=== PATIENT | female | born 1940 | race Two or more races ===

== ENCOUNTER 2025-03-22 11:20 | Emergency (ER) | payer OTHER ==
[~2025-03-22] VITALS: Ht 160 cm; Wt 80.0 kg
[2025-03-22 11:30] VITALS: O2SAT 98
[2025-03-22] MEDS: ACETAMINOPHEN 500MG TABLET PO ONE (13:29)
[2025-03-22] MEDS: LIDOCAINE HCL/PF 1% 10 MG/ML 5ML VIAL INFIL ONE (13:40)
[2025-03-22] MEDS: BACITRACIN ZINC OINT UDPKT TOP ONE (13:40)
[2025-03-22] MEDS: AMOXICILLIN/POTASSIUM CLAVULANATE 875/125MG TAB PO ONE (13:58)
[2025-03-22] MEDS: TETANUS, DIPHTHERIA, PERTUSSIS VAC/PF 0.5ML (>10YR OLD) IM ONE (14:03)
[2025-03-22] MEDS ORDERED: AMOX1TAB16 MT (16:07)
[2025-03-22] MEDS ORDERED: BO1 TP (16:07)
[2025-03-22] MEDS ORDERED: ACET-2708 MT (16:07)
[2025-03-22] MEDS ORDERED: OXYM30SP26 BOTHNSTRLS (16:07)
[2025-03-22] MEDS: OXYMETAZOLINE HCL NASAL SPRAY 15ML RIGHTNSTRL SCH (17:15)
[2025-03-22 18:26] VITALS: BP 127/68; PULSE 88; RESP 18; TEMP 36.9; O2SAT 99
== END 2025-03-22 18:27 | disposition home or self-care (01) ==
LOC: ER 11:20
DX: S02.40DA Maxillary fracture, left side, initial encounter for closed fracture (principal); S02.2XXA Fracture of nasal bones, initial encounter for closed fracture; E78.00 Pure hypercholesterolemia, unspecified; Z88.6 Allergy status to analgesic agent; W10.9XXA Fall (on) (from) unspecified stairs and steps, initial encounter; Y93.89 Activity, other specified; Y92.89 Other specified places as the place of occurrence of the external cause; Y99.8 Other external cause status
CPT/HCPCS: 99285; 70450; 70486; 90715; 12014; 90471; J2003